=== PATIENT | female | born 1945 | race Caucasian/White ===

== ENCOUNTER 2024-06-21 13:02 | Outpatient (AMB) | payer MEDICARE, SELFPAY ==
--- NOTE | 2024-06-21 13:13 | MHC.OFFVIS ---
Vital Signs 06/21/24 13:17 Height 5 ft 6 in Weight 194 lb 0.108 oz BMI 31.3 BP 141/79 H Blood Pressure Location Lt brachial Position Sitting Pulse 92 Intake Visit Reasons: Abdominal Pains Intake Note: Thu presents in the office as a new patient for abdominal pains. CC: Pains in the stomach, she goes through times of constipation and diarrhea. She has attacks where she will have diarrhea and vomiting for 24hours and then she was unable to put anything in her stomach for about a week. She states that the attacks happen often and they seem to be getting worse. Crohns runs in the family and she states she was diagnosed with diverticulitis - her last GI provider moved to [place]. Manager Health Required: No Allergies morphine Allergy (Mild, Verified 06/21/24 13:19) Rash HPI Comments Details: 78 y.o F with PMH of diverticulosis with prev hx of diverticulitis who is here to establish care. [place] [facility] [place]. Reports x 10 year hx of known diverticulosis with multiple episodes of uncomplicated diverticulitis over the years. In the last 2-3 years this has gotten significantly worse in terms of frequency and intensity. Now pain is unbearable, to the point of passing out. Has to go to ER almost with each flare for pain management. Prev GI had referred her to colorectal surg for eval for colon resection however on their assessment as pain is predominantly RLQ this was attributed to RLQ abd wall hernia and she underwent hernia repair (Dr Diana Rodriguez 06/2022). Intra-op this was noted to be more of a diastasis than a true herniating defect, regardless she had 15 cm circular mesh placement. Now main issue is unchanged i.e intermittent episodes of severe bilater lower quadrant pain assoc with nausea, chills and change in bowel habits. Most recent [facility] [place] visits in Feb and May did not show CT evidence of diverticulitis. In between these episodes she has vague discomfort and bloating that is persistent. She has also seen GI at [facility] for same and was prescribed Hyosciamined and Linzess. She also has hx of large SSLs and has undergone multiple colos for polypectomy. Most recently in 2021 per her report in [facility]. Relevant labs, imaging and path reviewed from [facility] [place]. [facility] Family History (Updated 06/21/24 @ 13:21 by ALISA Young) Sister Crohn disease Review of Systems Const All systems reviewed & are unremarkable except as noted in HPI and below Physical Exam Vital Signs: Last Vital Signs Pulse 92 06/21/24 13:17 BP 141/79 H 06/21/24 13:17 BMI result Body Mass Index 31.3 Assessment & Plan Assessment & Plan (1) Change in bowel habit: Code(s): R19.4 - Change in bowel habit Category: Medical (2) Diverticulosis: Code(s): K57.90 - Diverticulosis of intestine, part unspecified, without perforation or abscess without bleeding Category: Medical (3) Irritable bowel disease: Code(s): K58.9 - Irritable bowel syndrome, unspecified Category: Medical (4) Sessile serrated polyp of colon: Code(s): D12.6 - Benign neoplasm of colon, unspecified Category: Medical Plan 1. 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 A fecal calpro will be helpful. In the meantime, will Rx rifaximin which should help with either of these. Plan: - Check labs as below to r/o malabsorptiom, thyroid abnl, CRP and fecal calpro - AFTER submission of labs, start rifaximin 550 BID - If fecal calpro elevated and minimal response to rifaximin, will trial mesalamine enema for SUDD - Pt also reminded to bring most recent colo report to office next visit to check path for r/o SCAD - Will review indication for 2nd opinion for surgical resection at next visit Follow up 2 months Orders: Orders Calprotectin, Fecal Today R19.4 - Change in bowel habit Immunoglobulin A Today R19.4 - Change in bowel habit TSH reflex Free T4 Today R19.4 - Change in bowel habit Transglutaminase IgA Today R19.4 - Change in bowel habit GI Panel Today R19.4 - Change in bowel habit C Reactive Protein Today R19.4 - Change in bowel habit Medications: New rifaximin 550 mg PO BID 14 days 28 tabs 0RF rifaximin 550 mg PO BID 28 tabs 0RF 14 days Coding Level of Care Code New Pt Level 5 (13342) Complex EM visit Add On G2211 Diagnoses Change in bowel habit R19.4 Diverticulosis K57.90 Irritable bowel disease K58.9 Sessile serrated polyp of colon D12.6
[2024-06-21 13:17] VITALS: BP 141/79; PULSE 92; BMI 31.3
== END 2024-06-21 14:03 | disposition home or self-care (01) ==
PROVIDERS: PCP Internal Medicine; Visit Provider Internal Medicine
DX: R19.4 Change in bowel habit (principal); K57.90 Diverticulosis of intestine, part unspecified, without perforation or abscess without bleeding; K58.9 Irritable bowel syndrome, unspecified; Z86.0100 Personal history of colon polyps, unspecified
CPT/HCPCS: 99204; G2211

== ENCOUNTER → 2024-06-21 13:02 | Outpatient (BNVA) | payer MEDICARE, SELFPAY | PROVIDERS: PCP Internal Medicine; Visit Provider Internal Medicine | DX: K57.90 Diverticulosis of intestine, part unspecified, without perforation or abscess without bleeding (principal); R19.4 Change in bowel habit; K58.9 Irritable bowel syndrome, unspecified; D12.6 Benign neoplasm of colon, unspecified | CPT/HCPCS: 99202 ==

== ENCOUNTER 2024-06-24 14:30 | Outpatient (REF) | payer MEDICARE, SELFPAY ==
[2024-06-24 18:54] LABS: C Reactive Protein 0.14 mg/dL (< or = 0.50)
[2024-06-24 19:11] LABS: TSH reflex Free T4 1.48 uIU/mL (0.32-4.0)
[2024-06-25 12:32] LABS: Adenovirus F 40/41 Not Detected (Not Detect.); Astrovirus Not Detected (Not Detect.); Campylobacter Not Detected (Not Detect.); Cryptosporidium Not Detected (Not Detect.); Cyclospora cayetanensis Not Detected (Not Detect.); E. coli EAEC Not Detected (Not Detect.); E. coli EPEC Not Detected (Not Detect.); E. coli ETEC Not Detected (Not Detect.); E. coli STEC Not Detected (Not Detect.); Entamoeba histolytica Not Detected (Not Detect.); Giardia lamblia Not Detected (Not Detect.); Plesiomonas shigelloides Not Detected (Not Detect.); Rotavirus A Not Detected (Not Detect.); Salmonella Not Detected (Not Detect.); Sapovirus Not Detected (Not Detect.); Shigella sp./EIEC Not Detected (Not Detect.); Vibrio Not Detected (Not Detect.); Vibrio Cholerae Not Detected (Not Detect.); Yersinia enterocolitica Not Detected (Not Detect.)
[2024-06-25 13:17] LABS: Immunoglobulin A 218 mg/dL (70-320)
[2024-06-25 19:39] LABS: Transglutaminase IgA <1.0 U/mL
[2024-06-27 12:36] LABS: Norovirus Stool PCR DETECTED
[2024-07-02 20:09] LABS: Calprotectin, Fecal 60 mcg/g
== END 2024-06-24 14:31 | disposition home or self-care (01) ==
LOC: HO.WFDLDS 14:30
PROVIDERS: Visit Provider Internal Medicine
DX: R19.4 Change in bowel habit (principal)
CPT/HCPCS: 36415; 82784; 83993; 84443; 86140; 86364; 87507